=== PATIENT | female | born 2005 | race Caucasian/White ===

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

== ENCOUNTER 2023-12-28 10:52 | Emergency (ER) | payer OTHER, BC ==
[~2023-12-28] VITALS: Ht 162.6 cm; Wt 66.3 kg
[2023-12-28 10:53] VITALS: BP 113/73; PULSE 78; RESP 14; TEMP 98.6; O2SAT 99
[2023-12-28] MEDS: TETRACAINE 0.5% 4 ML OPHTHALMIC DROPS LEFTEYE ONE (11:37)
[2023-12-28] MEDS: fluorescein sod 1mg ophthalmic strip LEFTEYE ONE (11:37)
[2023-12-28] MEDS ORDERED: ERYT1OIN6 LEFTEYE (12:34)
[2023-12-28] MEDS ORDERED: CIPR2.5D21 LEFTEYE (12:34)
== END 2023-12-28 12:52 | disposition home or self-care (01) ==
LOC: ER 10:52
DX: S05.02XA Injury of conjunctiva and corneal abrasion without foreign body, left eye, initial encounter (principal); V89.2XXA Person injured in unspecified motor-vehicle accident, traffic, initial encounter; Y93.89 Activity, other specified; Y92.89 Other specified places as the place of occurrence of the external cause; Y99.8 Other external cause status
CPT/HCPCS: 99283